=== PATIENT | female | born 1980 | race Caucasian/White ===

== ENCOUNTER 2022-12-15 13:54 | Outpatient (OUT) | payer BC, SELFPAY ==
--- NOTE | 2022-12-15 13:58 | MM_ITS ---
Patient: AMNA MAZA Exam Date: 12/15/2022 : 1980 Gender:F Ordering : Non-Staff Physician Admission #: [id number] Family : PAKO LENNON Order #: [id number] CLICK HERE TO VIEW EXAM RADIOLOGY REPORT PROCEDURE: MM TOMOSYNTHESIS SCREENING BI COMPARISON: MG MAMM SCREEN 3D JHONATHAN CAD, 12/14/2021. INDICATIONS: Screening Calculator Name NCI Breast Cancer Risk Assessment Tool 5 Year Breast Cancer Risk Not Reported. Lifetime Breast Cancer Risk Not Reported. Personal Breast Cancer No Personal Ovarian Cancer No Treatments None Family Cancers None LOCATION: The [facility] BREAST COMPOSITION: Heterogeneously dense,which may obscure small masses. FINDINGS: DIAGNOSTIC CATEGORY 1--NEGATIVE. RIGHT BREAST: No significant suspicious finding. No significant change has occurred. LEFT BREAST: No significant suspicious finding. No significant change has occurred. RECOMMENDATIONS: ROUTINE MAMMOGRAM AND CLINICAL EVALUATION IN 12 MONTHS. PLEASE NOTE: A NORMAL MAMMOGRAM DOES NOT EXCLUDE THE POSSIBILITY OF BREAST CANCER. A CLINICALLY SUSPICIOUS PALPABLE LUMP SHOULD BE BIOPSIED. Dictated by: Bassam Trivedi M.D. on 12/18/2022 at 13:16 Approved by: Bassam Trivedi M.D. on 12/18/2022 at 13:18
== END 2022-12-15 13:55 | disposition home or self-care (01) ==
LOC: MAMMO 13:55
DX: Z12.31 Encounter for screening mammogram for malignant neoplasm of breast (principal)
CPT/HCPCS: 77063; 77067

== ENCOUNTER 2023-12-21 13:33 | Outpatient (OUT) | payer BC, SELFPAY ==
--- NOTE | 2023-12-21 13:37 | MM_ITS ---
Patient Name: AMNA MAZA MR#: [id number] : 1980 Exam Date: 12/21/2023 Ordering Doctor: Non-Staff Physician RADIOLOGY REPORT PROCEDURE: MM TOMOSYNTHESIS SCREENING BI COMPARISON: MM TOMOSYNTHESIS SCREENING BI, 12/15/2022. MG MAMM SCREEN 3D JHONATHAN CAD, 12/14/2021. INDICATIONS: Screening Calculator Name NCI Breast Cancer Risk Assessment Tool 5 Year Breast Cancer Risk Not Reported. Lifetime Breast Cancer Risk Not Reported. Personal Breast Cancer No Personal Ovarian Cancer No Treatments None Family Cancers None LOCATION: The [facility] BREAST COMPOSITION: The breasts are heterogeneously dense,which may obscure small masses. FINDINGS: DIAGNOSTIC CATEGORY 1--NEGATIVE. RIGHT BREAST: No significant suspicious finding. No significant change has occurred. LEFT BREAST: No significant suspicious finding. No significant change has occurred. RECOMMENDATIONS: ROUTINE MAMMOGRAM AND CLINICAL EVALUATION IN 12 MONTHS. PLEASE NOTE: A NORMAL MAMMOGRAM DOES NOT EXCLUDE THE POSSIBILITY OF BREAST CANCER. A CLINICALLY SUSPICIOUS PALPABLE LUMP SHOULD BE BIOPSIED. Dictated by: Bassam Trivedi M.D. on 12/21/2023 at 16:16 Approved by: Bassam Trivedi M.D. on 12/21/2023 at 16:18
== END 2023-12-21 13:34 | disposition home or self-care (01) ==
LOC: MAMMO 13:33
DX: Z12.31 Encounter for screening mammogram for malignant neoplasm of breast (principal)
CPT/HCPCS: 77063; 77067

== ENCOUNTER 2024-12-22 14:00 | Outpatient (OUT) | payer SELFPAY ==
--- OUTSIDE RECORDS SUMMARY | 2024-12-11 08:32 | XMS_ITS ---
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 Role Phone HA HERNANDEZ Attending Unavailable HA HENRANDEZ Attending EVA Lima Referring Unavailable NOT, ON FILE Primary Care Unavailable Brittny Judd PA-C Attending Thomas Hernandez MD, Ha Sorenson Primary Care Unavailab Brittny Grigsby PA-C Attending Thomas Hernandez MD, Ha Sorenson Primary Care Unavailab HA Roberto Referring Unavailable HA HERNANDEZ Primary Care Unavailable HA HERNANDEZ Referring Unavailable HA HERNANDEZ Primary Care Unavailable Purpose PROBLEMS DATE TYPE CONDITION / CODE ATTENDING STATUS JOHNATHAN Freddy 12/11/2024 Unknown Abnormal level o f blood mineral / R79.0(ICD-10) NA Active [facility] 11/27/2024 Unknown Dizziness and gi ddiness / R42(ICD-10) NA [facility] 06/24/2024 Unknown Encounter for gy necological examination (general) (routine) without abnormal findings / Z01.419(ICD-10) NA Active [facility] PROCEDURES No Procedure Records Found VITAL SIGNS No Vital Signs Records Found RESULTS FERRITIN Collected: 12/11/2024 8:37 AM S tatus: COMPLETED Source: [facility] Order Comment: Print requisi tion?->Yes TYPE CODE TESTS RESULT OUT OF RANGE REFERENCE UNITS LAB FERR FERRITIN 18 11-307 ng/mL Performed By: #### FERR #### [facility] (TT) [address] [place] [address] VIR CBC WITH AUTO DIFFERENTIAL Collected: 0 11/27/2024 8:06 AM Status: COMPLETED Source: [facility] TYPE CODE TESTS RESULT OUT OF RANGE REFERENCE UNITS LAB WBC WBC 4.6 4-11 x10E9/L LAB RBC RBC COUNT 4.59 3.8-5.2 X10E12/L LAB HGB HEMOGLOBIN 13.6 11.7-15.5 g/dL LAB HCT HEMATOCRIT 39.9 35-47 % LAB MCV MCV 87 80-100 fL LAB MCH MCH 29.7 27-34 pg LAB MCHC MCHC 34.2 32-36 g/dL LAB RDW RDW 12.8 11.5-15 % LAB PLTC PLATELET COUNT 145 Low 150-450 X10E9/L LAB MPV MPV 9.0 7-12 fL LAB NEUT NEUTROPHILS RELATIVE PERCENT BY AUTOMATED COUNT 46.9 % LAB LYMP LYMPHOCYTES RELATIVE PERCENT BY AUTOMATED COUNT 41.9 % LAB MONO MONOCYTES RELATIVE PERCENT BY AUTOMATED COUNT 8.1 % LAB EOS EOSINOPHILS RELATIVE PERCENT BY AUTOMATED COUNT 2.4 % LAB BASO BASOPHILS RELATIVE PERCENT BY AUTOMATED COUNT 0.7 % LAB ANEUT NEUTROPHILS ABSOLUTE COUNT BY AUTOMATED COUNT 2.1 1.5-6.6 10*3/uL LAB ALYMP LYMPHOCYTES ABSOLUTE COUNT (10*3/UL) BY AUTOMATED COUNT 1.9 1.0-3.5 10*3/uL LAB AMONO MONOCYTES ABSOLUTE COUNT (10*3/UL) BY AUTOMATED COUNT 0.4 0.0-0.9 10*3/uL LAB AEOS EOSINOPHILS ABSOLUTE COUNT (10*3/UL) BY AUTOMATED COUNT 0.1 0.0-0.4 10*3/uL LAB ABASO BASOPHILS ABSOLUTE COUNT (10*3/UL) BY AUTOMATED COUNT 0.0 0.0-0.2 10*3/uL LAB DTYPE CELLAVISION DIFFERENTIAL TYPE AUTOMATED DIFFERENTIAL Performed By: #### CBCA #### [facility] ([facility]) [address] [place] [address] VIR TSH Collected: 11/27/2024 8:06 AM S tatus: COMPLETED Source: [facility] TYPE CODE TESTS RESULT OUT OF RANGE REFERENCE UNITS LAB TSH TSH 2.46 0.49-4.67 uIU/mL Performed By: #### TSH #### [facility] ([facility]) [address] [place] [id number] VIR COMPREHENSIVE METABOLIC PANEL Collected: 2024 8:06 AM Status: COMPLETED Source: [facility] TYPE CODE TESTS RESULT OUT OF RANGE REFERENCE UNITS LAB NA SODIUM 139 134-146 mmol/L LAB K POTASSIUM 3.8 3.5-5.0 mmol/L LAB CL CHLORIDE 105 98-109 mmol/L LAB CO2 CARBON DIOXIDE 26 22-32 mmol/L LAB AGAP ANION GAP 8 5-15 mmol/L LAB BUN BLOOD UREA NITROGEN 18 5-23 mg/dL LAB CRET CREATININE 0.81 0.40-1.00 mg/dL Result Comment: METHOD TRACE ABLE TO IDMS STANDARD LAB GLU GLUCOSE 83 65-99 mg/dL LAB CA CALCIUM 9.3 8.5-10.5 mg/dL LAB TP TOTAL PROTEIN 6.7 6.0-8.0 g/dL LAB ALB ALBUMIN 4.4 3.2-5.3 g/dL LAB ALK ALKALINE PHOSPHATASE 42 39-130 U/L LAB AST AST 17 <=41 U/L LAB ALT ALT 16 <=31 U/L LAB TBIL BILIRUBIN,TOTAL 1.0 0.3-1.2 mg/dL LAB EGFR EGFR (CKD-EPI) NON-RACE DEPENDENT >^90 >=60 ml/min/1 .73sq.m Result Comment: Reported eGF R is based on the CKD-EPI 2020 equation that does not use a race coefficient. Performed By: #### CMP #### [facility] ([facility]) [address] [place] [address] VIR LIPID PROFILE Collected: 11/27/2024 8:06 AM Status: COMPLETED Source: [facility] TYPE CODE TESTS RESULT OUT OF RANGE REFERENCE UNITS LAB CHOL CHOLESTEROL 164 150-200 mg/dL LAB TRIG TRIGLYCERIDE 53 27-150 mg/dL LAB HDL HDL CHOLESTEROL 74 >39 mg/dL Result Comment: HDL <40 mg/d L - High Risk HDL > or = 40mg/dL- Desirable HDL >60 mg/dL - Negative Risk LAB LDL LDL (CALC) 79 <130 mg/dL Result Comment: LDL <100 mg/ dL - Desirable LDL >160 mg/dL - High Risk LAB CHDL CHOLESTEROL:HDL 2.2 1.0-5.0 NA LAB VLDL VERY LOW LIPOPROTEIN 11 0-30 mg/dL Performed By: #### LIPR #### [facility] ([facility]) [address] [place] [address] VIR IRON AND TIBC Collected: 8:06 AM Status: COMPLETED Source: [facility] TYPE CODE TESTS RESULT OUT OF RANGE REFERENCE UNITS LAB FE IRON 173 High 50-170 ug/dL LAB TRF TRANSFERRIN 267 168-336 mg/dL LAB TIBC IRON BINDING 374 250-425 ug/dL LAB SAT IRON SATURATION 46 15-50 % SATURATION Performed By: #### FEPR #### [facility] ([facility]) [address] [place] [address] VIR TRANSFERRIN Collected: 11/27/2024 8:06 AM S tatus: COMPLETED Source: [facility] TYPE CODE TESTS RESULT OUT OF RANGE REFERENCE UNITS LAB TRF TRANSFERRIN 267 168-336 mg/dL Performed By: #### TRF #### [facility] ([facility]) [address] [address] VIR VITAMIN B12 Collected: 11/27/2024 8:06 AM S tatus: COMPLETED Source: [facility] TYPE CODE TESTS RESULT OUT OF RANGE REFERENCE UNITS LAB B12 VITAMIN B12 320 180-914 pg/mL Performed By: #### B12 #### [facility] ([facility]) [address] [place] [address] VIR OTOLARYNGOLOGY OFFICE/CLINIC NOTE Observed: 08/08/2024 9:21 AM Status: F Source: [facility] Chief Complaint Pt states here for hoarseness/VC concerns . History of Present Illness History of Present Illness HPI: Pt states hoarseness has been coming and going for a few yrs. 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 SHe feels like the last 2 years have been slowly worsening. No pain, no swallowing issues. She has known thyroid nodules that are being monitored elsewhere. No other associated symptoms Review of Systems General Adult ROS Fatigue: No Appetite change: No Other General: No Weakness: No Weight gain: No Weight Loss: No Cardiovascular Chest pain/pressure: No Claudication: No Edema: No Orthopnea: No Other Cardiovascular: No Palpitations: No Syncope: No EENMT Bleeding gums: No Dental pain: No Ear drainage: No Ear pain: No Facial pain: No Hearing loss: No Hoarseness: Yes Mouth lesions: No Nasal congestion: No Nasal discharge: No Nosebleeds: No Other EENMT: No Postnasal drainage: No Sore_throat: No Tinnitus: No Vision Changes: No Gastrointestinal Abdominal pain: No Constipation: No Diarrhea: No Dysphagia: No Fecal incontinence: No Heartburn: No Nausea: No Other GI: No Stools, black/bloody: No Vomiting: No Vomiting blood: No Genitourinary Decreased urine output: No Dysuria: No Frequency: No Genital irritation: No Hematuria: No Hesitancy: No Impaired urge sensation: No Other Genitourinary: No Polyuria: No Sexual dysfunction: No Urgency: No Urinary Incontinence: No Vaginal discharge: No Hematologic/Lymphatic Musculoskeletal Neurological Psychiatric Respiratory Apnea: No Cough: No Hemoptysis: No Other Respiratory: No Shortness_of_breath: No Snoring: No Sputum production: No Wheezing: No Skin Physical Exam Vitals & Measurements BP: 107/66 HT: 170.3 cm WT: 66 kg (Dosing) WT: 66 kg BMI: 22.76 Overall:[Communication mode is clear, normal] [Appearance- no acute distress, appears stated age and is well nourished] Assistive device:[ none] Head:[normocephalic, no trauma, lesions or asymmetry] Ocular appearance:[ Conjuctiva- clear and bright, no drainage or infection. EOM intact] Ears:[ external ear- normal shape, no signs of infection, mass, lesion or asymmetry bilaterally. Ear canal is healthy, free from wax and infection, bilaterally] [Eardrum-healthy, no sign of infection, trauma, perforation or infection] [Middle ear- healthy, no obvious fluid present or infection] Nose:[ External- healthy, no sign of asymmetry, lesion or infection] Septum:[ Midline, no sign of perforation, infection or deviation] Turbinates:[ normal, no hypertrophy, mass or polyp] Nasal passages:[ clear, no infection, drainage or obstruction] Oral cavity:[ Normal, tongue healthy no mass, lesion or infection. Soft and hard palate normal. Bimanual palpation is normal. Mucosa moist, free from infection][ Benign gingiva, good dental hygiene][Tonsil size is normal, no asymmetry, mass or lesionn][oropharynx- clear, no evidence of post nasal drip, cobblestoning or other abnormalities] Nasopharynx:[ unable to view with mirror due to gagging] Larynx:[ Unable to view with mirror due to gagging] Neck:[ Salivary gland exam is normal, no enlargement or tenderness. No lymph node enlargement. TMJ exam is normal, no tenderness noted][ Thyroid exam is normal, no masses or tenderness, mild enlargement Mental Status:[Alert and oriented x3][Mood and affect normal][Gait is normal]. Flexible laryngoscopy:[ After verbal informed consent obtained. Scope was Preformed today- topical decongestant, small amount lidocaine viscous used on end of scope only. Entered through the right side. Nasal exam was normal, no sign of infection or drainage. Nasopharynx is clear, adenoid exam is normal. Hypopharynx- exam is normal no evidence of mass, lesion, infection but mild lingual tonsil hypertrophy is noted. Larynx- exam noted mild anterior edems. Vallecula is clear. No pooling of secretions noted. Vocal cords clear, no polyp or mass noted. Small vessel prominent right anterior cord. Movement is normal, no weakness or paralysis is noted. Scope removed without issue, pt tolerated the procedure will with no lasting effects.] Additional Vitals BP Position/Location: Sitting, Right arm Assessment/Plan 1. Dysphonia Pt has had slowly worsening voice issues, becoming more difficult to sing. no pain present. THere is mild edema and increase vasculature on exam but no paralysis, weakness, nodules. Suspect she has mild uncontrolled lpr and meds given for bedtime to treat. will continue for several months and then reassess for response. Can consider vocal therapy as well if fails to improve 2. LPRD (laryngopharyngeal reflux disease) 3. Thyroid nodule Pt has thyroid nodules managed elsewhere unlikely related to voice. continue to monitor Medical Decision Making Chronic conditions NOT treated during this visit that affected my overall medical decision making: [] Treatment plans discussed but not opted for at this time: [] Prescribed medication that requires intensive monitoring for toxicity: [] I have reviewed the patient?s medication list for medication interactions/contraindications and/or for upcoming procedures: [yes or no] Time Spent with the Patient I have personally spent [35] minutes on this date, directly related to today's patient visit, including pre and post visit work, for this date of service. Time listed does not include time spent on separately billable services. Problem List/Past Medical History Ongoing Loss of voice Raspy voice Historical No qualifying data Procedure/Surgical History Right oophorectomy (07/05/2011) Medications cetirizine, Oral, Daily famotidine 40 mg oral tablet, 40 mg= 1 tabs, Oral, HS (at bedtime), 6 refills Probiotic Formula oral capsule, 1 caps, Oral, Daily Allergies No Known Allergies Social History Tobacco Never (less than 100 in lifetime) Use:. Electronically signed by Brittny Judd PA-C 08/19/24 12:26 EDT CYTOLOGY REPORT Observed: 06/24/2024 12:00 AM Status: F Source: [facility] (NOTE) Path Number: [id number] DIAGNOSIS Imaged ThinPrep Pap - Cervical (1 monolayer slide): Specimen Adequacy: Satisfactory for evaluation. - Endocervical/transformation zone component present. Descriptive Diagnosis: Negative for intraepithelial lesion or malignancy. 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 The Pap smear is a screening test primarily for squamous epithelial lesions, which is subject to both false negative and false positive results. Your patient should be reminded to consult you immediately if she experiences any suspicious signs or symptoms, regardless of her Pap smear result. GYNECOLOGIC CYTOLOGY REPORT Patient Name: AMNA MAYBERRY [facility] Rec: [id number] [facility] PATHOLOGISTS [facility] [address] [place] [address]. [place], [place] [address] ALLERGIES DATE TYPE / CODE NAME / CODE REACTION SEVERITY SOURCE Drug Class/582022939(SNO MED CT) NO KNOWN ALLERGIES [facility] DRUG/098977241(SNOM ED CT) No Known Allergies [facility] ENCOUNTERS ADMIT/DISCHARGE ACCOUNT NUMBER ADMITTING ENCOUNTER CLASS LOCATION SOURCE 12/11/2024 [id number] Ambulatory Building:[facility] 12/10/2024/12/11/19 [id number] Ambulatory Building:[facility] 11/27/2024 [id number] Ambulatory Building:[facility] 10/20/2024/10/21/19 25 [id number] Ambulatory ENT SpecBuilding :ENT Spec [facility] 10/15/2024/10/16/19 [id number] Ambulatory Building:[facility] 08/08/2024/08/09/19 25 [id number] Ambulatory ENT SpecBuilding :ENT Spec [facility] 06/24/2024/06/25/19 [id number] Ambulatory Building:[facility] FUNCTIONAL STATUS No Functional Status Records Found EQUIPMENT No Equipment Records Found PAYERS ENCOUNTER GUARANTOR PAYER SUBSCRIBER SOURCE 10/20/2024 [facility] Trimble[facility], [place] [address]Xek: () Primary Insurance:Self PayPolicy Number: Effective Date:[id number] Name:TAYE Trimble: [id number] [place] [address]~eva [email or web address] [facility] 08/08/2024 Amna MayberryDOB: [facility] [place] [address]Hwq: (HP) Primary Insurance:Self PayPolicy Number: Effective Date:[id number] Name:TAYE YangTimmy: [id number] [place] [address]~eva [email or web address] [facility] 06/24/2024 AMNA E ELENAB: [place], [place] [address]Gfl: (HP) Primary Insurance:[facility] BREAST AND CERVICAL PROGRAMPolicy Number: [id number] Date: [place] [address]AP: AMNA MAYBERRYB: [id number] [place], [place] [address]Gtz: (HP) [facility] SOCIAL HISTORY No Social History Records Found FAMILY HISTORY No Family History Records Found ADVANCE DIRECTIVES No Advanced Directives Records Found INFORMATION SOURCE DATE CREATED AUTHOR AUTHOR'S MARA ATION 12/22/2024 BOGDAN
--- NOTE | 2024-12-22 14:03 | MM_ITS ---
Patient Name: AMNA MAZA MR#: [id number] : 1980 Exam Date: 12/22/2024 Ordering Doctor: NON-STAFF PHYSICIAN RADIOLOGY REPORT PROCEDURE: MM TOMOSYNTHESIS SCREENING BI COMPARISON: MM TOMOSYNTHESIS SCREENING BI, 12/21/2023. MM TOMOSYNTHESIS SCREENING BI, 12/15/2022. MG MAMM SCREEN 3D JHONATHAN CAD, 12/14/2021. INDICATIONS: Screening Calculator Name NCI Breast Cancer Risk Assessment Tool 5 Year Breast Cancer Risk Not Reported. Lifetime Breast Cancer Risk Not Reported. Personal Breast Cancer No Personal Ovarian Cancer No Treatments None Family Cancers None LOCATION: The [facility] BREAST COMPOSITION: The breasts are heterogeneously dense, which may obscure small masses. FINDINGS: DIAGNOSTIC CATEGORY 1--NEGATIVE. RIGHT BREAST: No significant suspicious finding. LEFT BREAST: No significant suspicious finding. RECOMMENDATIONS: ROUTINE MAMMOGRAM AND CLINICAL EVALUATION IN 12 MONTHS. Dictated by: Royce Sykes DO on 12/22/2024 at 15:18 Approved by: Royce Sykes DO on 12/22/2024 at 15:19
== END 2024-12-22 14:01 | disposition home or self-care (01) ==
LOC: MAMMO 14:00
DX: Z12.31 Encounter for screening mammogram for malignant neoplasm of breast (principal)
CPT/HCPCS: 77063; 77067